=== PATIENT | male | born 1990 | race Caucasian/White ===

== ENCOUNTER 2024-06-20 10:44 | Outpatient (AMB) | payer OTHER, SELFPAY ==
--- NOTE | 2024-06-20 10:54 | MHC.OFFVIS ---
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 States his finger has been locking for more than 1 year now and is very painful. He was previously seen with [facility] and received 2 injection that did not last more than 1-2 months. States he is also numbness and tingling in his fingers. Patient would like to discuss surgical intervention. 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 States his finger has been locking for more than 1 year now and is very painful. He was previously seen with [facility] and received 2 injection that did not last more than 1-2 months. States he is also numbness and tingling in his fingers. Patient would like to discuss surgical intervention. [facility] Surgical History (Updated 06/20/24 @ 10:57 by DEMETRIUS Keane) H/O vasectomy History of ear surgery Social History (Updated 06/20/24 @ 10:57 by DEMETRIUS Keane) Current occupation: [employer]/ [employer]/ hand Physical Exam Vital Signs: BMI result Body Mass Index 31.6 Extrem Other: Patient is alert, oriented, and in no acute distress. Neuro: Normal sensation of the tips of all digits of the left hand at this time Vascular: Cap refill brisk Pain: Tenderness to palpation of the A1 vicki of the left middle finger Pain associated with locking and catching of the left middle finger ROM: There is visible and palpable locking and catching of the left middle finger in a flexed position, consistent with trigger finger Patient is able to make a closed fist and extend all other digits of the left hand fully and without difficulty Skin: No lacerations or abrasions. General: No ecchymosis, erythema, or evidence of infection. Psych: Appears grossly normal Affect normal Attitude cooperative Assessment & Plan Assessment & Plan (1) Trigger finger, left middle finger: Code(s): M65.332 - Trigger finger, left middle finger Category: Medical Plan 1. Trigger finger, left middle finger I educated the patient about the condition. I discussed both operative and nonoperative treatment options. The patient would like to proceed with surgery. The risks and benefits of operative treatment were discussed with the patient and the patient wishes to proceed with surgery. These risks include, but are not limited to, risk of damage to blood vessels, nerves, tendons, infection, recurrence, incomplete relief of preoperative symptoms, persistent pain, possible need for further surgery, and the risks associated with regional blocks and/or anesthesia. Plan is to take the patient to the operating room at some point in the next few weeks for the following procedures: 1. Left middle finger trigger release under local All of the preoperative paperwork including the consent was discussed today. All of the patient's questions were answered in the clinic today. The patient understands that they will be in contact with our surgical specialist to discuss scheduling their procedure. Patient denies diabetes, blood thinners, asthma, heart issues, lung issues, kidney issues, or current smoking. Coding Level of Care Code New Pt Level 4 (72480) Diagnoses Trigger finger, left middle finger M65.332
[2024-06-20 10:55] VITALS: BMI 31.6
== END 2024-06-20 11:16 | disposition home or self-care (01) ==
LOC: HO.HOS 10:45
DX: M65.332 Trigger finger, left middle finger (principal); Z04.2 Encounter for examination and observation following work accident
CPT/HCPCS: 99204

== ENCOUNTER → 2024-06-20 10:44 | Outpatient (BNVA) | payer OTHER, SELFPAY | DX: M65.332 Trigger finger, left middle finger (principal) | CPT/HCPCS: 99202 ==

== ENCOUNTER 2024-07-26 10:06 | Day surgery (SDC) | payer OTHER, SELFPAY ==
--- OUTSIDE RECORDS SUMMARY | 2024-07-26 09:01 | XMS_ITS | Clinical Summary ---
Author Organization Patient Business [facility] Address [address] [place] [address] Care Team Providers Care Shader And Toner Name Role Phone Michael Stephens MD Primary Care Provider [phone] Allergies No known active allergies Medications albuterol HFA (PROAIR HFA ; PROVENTIL HFA ; VENTOLIN HFA) 90 mcg/actuation inhaler Inhale 2 puffs by mouth every 4 (four) hours if needed for wheezing or shortness of breath. 1 each Active ascorbic acid (VITAMIN C) 1,000 mg CR tablet Take by mouth. Activ e Active Problems Problem Noted Date Diagnosed Date Migraine without aura and wi thout status migrainosus, not intractable 09/21/2015 Encounters Date Type Department Care Team Description 06/13/2024 Telephone Internal Medicine - [facility] [address] [place] [id number] Michael Stephens MD Chest Pain; psnemonia 05/25/2024 5:02 AM EST - 05/25/2024 9:16 AM EST Emergency [facility] Emergency [address] [place] [address] Pneumonia of right middle lobe due to infectious organism (Primary Dx) Discharge Disposition: Home or Self Care from Last 3 Months Immunizations Name Administration Dates Next Due Influenza Quadravalent, MDCK , 0.5ml, preservative free (Flucelvax) 6mo and older 01/20/2020,04/13/2019 Tdap Tetanus diptheria acell ular pertussis (Boostrix; Adacel) 7yo and older 07/26/2014 Surgical History Surgery Date Site/Laterality Comments APPENDECTOMY PROCEDURE: LA APPENDEC INDICATED PURPOSE OTH MAJOR PX NOT SPX OTHER SURGICAL HISTORY PROCEDURE: HISTORICAL EAR SURGERY Medical History Medical History Date Comments Migraine without aura and wi thout status migrainosus, not intractable 09/21/2015 DX:Migraine withou t aura and without status migrainosus, not intractable Family History Medical History Relation Name Comments Other: ca Liver and ca uterus Mother's side second cousin Relation Name Status Comments Brother 1 Alive Brother 2 Alive Brother 3 Alive Daughter Alive Father Alive Mother Alive Mother's side Sister Alive Son Alive Social History Tobacco Use Types Packs/Day Years Used Date Smoking Tobacco: Never Smokeless Tobacco: Never Alcohol Use Standard Drinks/Week Comments Yes 0 (1 standard drink = 0.6 oz pur e alcohol) Sex and Gender Information Value Date Recorded Sex Assigned at Male 05/24/2024 8:18 PM EST Legal Sex Male 6:44 PM EST Gender Identity Male 05/24/2024 8:18 PM EST Sexual Orientation Straight 05/24/2024 8: 18 PM EST Obstetrics History Last Filed Vital Signs Vital Sign Reading Time Taken Comments Blood Pressure 109/84 05/25/2024 5:10 AM EST Pulse 64 05/25/2024 5:10 AM EST Temperature 36.8 ??C (98.3 ??F) 05/25/2024 8:53 AM ES T Respiratory Rate 19 05/25/2024 8:53 AM EST Oxygen Saturation 99% 05/25/2024 5:10 AM EST Inhaled Oxygen Concentration - - Weight 86.2 kg (190 lb) 05/24/2024 6:38 PM EST Height 165.1 cm (5' 5 ) 05/24/2024 6:38 PM EST Body Mass Index 31.62 05/24/2024 6:38 PM EST Plan of Treatment Upcoming Encounters Date Type Department Care Team (Late st Contact Info) Description 09/22/2024 2:30 PM EDT Office Visit Internal Medicine - [facility] [address] [place], [place] [phone] Kimberly Manzo MD [address] [place], [place] Health Maintenance Due Date Last Done Comments Hepatitis B Vaccines (1 of 3 - 19+ 3-dose series) 11/17/2007 COVID-19 Vaccine (2023-2 5 season) 2023 Depression Screening 05/25/2024 HIV Screening 05/25/2024 Hepatitis C Screening 05/25/2024 Social Influencers of Health Screening 05/25/2024 DTaP,Tdap,and Td Vaccines (2 - Td or Tdap) 07/26/2024 07/26/2014 Influenza Vaccine (Season Ended) 2024 01/20/2020, 04/13/2019 Cholesterol Screening (Lipid Panel) 05/04/2025 05/04/2020 HIB Vaccines Aged Out No longer eligi ble based on patient's age to complete this topic HPV Vaccines Aged Out No longer eligi ble based on patient's age to complete this topic Hepatitis A Vaccines Aged Out No long er eligible based on patient's age to complete this topic IPV Vaccines Aged Out No longer eligi ble based on patient's age to complete this topic MMR Vaccines Aged Out No longer eligi ble based on patient's age to complete this topic Meningococcal ACWY Vaccine Aged Out N o longer eligible based on patient's age to complete this topic Meningococcal B Vaccine Aged Out No l onger eligible based on patient's age to complete this topic Pneumococcal Vaccine: Pediatrics (0 to 5 Years) and At-Risk Patients (6 to 64 Years) Aged Out No longer eligible b ased on patient's age to complete this topic RSV Immunization Patients Under 20 months Aged Out No longer eligible b ased on patient's age to complete this topic Varicella Vaccines Aged Out No longer eligible based on patient's age to complete this topic Procedures Procedure Name Priority Date/Time Associated Diagnosis Comments ECG ANNOTATED 05/27/2024 RESPIRATORY VIRUS PANEL MOLECULAR STUDY STAT 05/25/2024 8:[address] CHEST WO CONTRAST STAT 05/25/2024 8:04 AM EST D-DIMER STAT 05/25/2024 6:17 AM EST [id number], RSV, FLU A AND B QUALITATIVE RT-PCR, INTERNAL LAB STAT 05/25/2024 6:17 AM EST XR CHEST 2 VIEWS STAT 05/24/2024 8:24 PM EST TROPONIN I HIGH SENSITIVITY STAT 05/24/2024 8:17 PM EST CBC WITH AUTO DIFFERENTIAL STAT 05/24/2024 6:50 PM EST B-TYPE NATRIURETIC PEPTIDE STAT 05/24/2024 6:50 PM EST MAGNESIUM STAT 05/24/2024 6:50 PM EST LIPASE STAT 05/24/2024 6:50 PM EST COMPREHENSIVE METABOLIC PANEL STAT 05/24/2024 6:50 PM EST CBC AND DIFFERENTIAL STAT 05/24/2024 6:50 PM EST TROPONIN I HIGH SENSITIVITY STAT 05/24/2024 6:50 PM EST ECG 12-LEAD STAT 05/24/2024 6:46 PM EST LIPID PANEL Routine 05/04/2020 from Last 3 Months or Most Recently Relevant to Health Maintenance Results * ECG-Annotated (05/27/2024) Provider Onbase MD ECG ORDERABLES Final Result * Respiratory virus panel molecular study (05/25/2024 8:08 AM EST) Adenovirus Detection by PCR Not Detected Not Detected LAB MICROBIOLOGY METHOD 05/25/2024 9:10 AM EST [facility] Influenza A PCR Not Detected Not Detected LAB MICROBIOLOGY METHOD 05/25/2024 9:10 AM EST [facility] Influenza B PCR Not Detected Not Detected LAB MICROBIOLOGY METHOD 05/25/2024 9:10 AM EST [facility] Coronavirus 229E Not Detected Not Detected LAB MICROBIOLOGY METHOD 05/25/2024 9:10 AM [facility] Coronavirus HKU1 Not Detected Not Detected LAB MICROBIOLOGY METHOD 05/25/2024 9:10 AM [facility] Coronavirus OC43 Not Detected Not Detected LAB MICROBIOLOGY METHOD 05/25/2024 9:10 AM [facility] Coronavirus NL63 Not Detected Not Detected LAB MICROBIOLOGY METHOD 05/25/2024 9:10 AM [facility] Parainfluenza Virus 1 Not Detected Not Detected LAB MICROBIOLOGY METHOD 05/25/2024 9:10 AM [facility] Parainfluenza Virus 2 Not Detected Not Detected LAB MICROBIOLOGY METHOD 05/25/2024 9:10 AM [facility] Parainfluenza Virus 3 Not Detected Not Detected LAB MICROBIOLOGY METHOD 05/25/2024 9:10 AM [facility] Parainfluenza Virus 4 Not Detected Not Detected LAB MICROBIOLOGY METHOD 05/25/2024 9:10 AM [facility] RSV PCR Not Detected Not Detected LAB MICROBIOLOGY METHOD 05/25/2024 9:10 AM [facility] Human Metapneumovirus A and B Not Detected Not Detected LAB MICROBIOLOGY METHOD 05/25/2024 9:10 AM [facility] Rhinovirus/Entero virus Not Detected Not Detected LAB MICROBIOLOGY METHOD 05/25/2024 9:10 AM [facility] Bordetella pertussis Not Detected Not Detected LAB MICROBIOLOGY METHOD 05/25/2024 9:10 AM [facility] Bordetella parapertussis Not Detected Not Detected LAB MICROBIOLOGY METHOD 05/25/2024 9:10 AM [facility] Mycoplasma pneumo by PCR Not Detected Not Detected LAB MICROBIOLOGY METHOD 05/25/2024 9:10 AM [facility] Chlamydia pneumoniae Not Detected Not Detected LAB MICROBIOLOGY METHOD 05/25/2024 9:10 AM EST [facility] SARS COV-2 Not Detected Not Detected LAB MICROBIOLOGY METHOD 05/25/2024 9:10 AM EST [facility] Swab Both anterior nares / Unknown Non-blood Collection / Unknown 05/25/2024 8:08 AM EST 05/25/2024 8:15 AM EST Narrative [facility] - 05/25/2024 9:10 AM EST Testing was performed using the [employer] Respiratory Pathogen PCR Assay. All results must be correlated with the clinical findings. Results should not be used as the sole basis for diagnosis. False Negative results may occur from the presence of sequence variants in the region targeted by the assay or the presence of inhibitors. Results may be affected by concurrent antiviral/antimicrobial therapy or levels of organisms that are below the limit of detection. Bee JACOB LAB MICROBIOLOGY - GENERAL OR DERABLES Final Result [facility] [address] [place] [address], * CT Chest wo Contrast (05/25/2024 8:04 AM EST) Anatomical Region Laterality Modality Body Computed Tomogra phy 05/25/2024 8:39 AM EST Impressions 05/25/2024 8:41 AM EST Right middle lobe and lingular pneumonia. -------- FINAL REPORT -------- Dictated By: VIRGILIO HENDERSON Dictated Date: 05/25/2024 08:39 ET Assigned Physician: VIRGILIO HENDERSON Reviewed and Electronically Signed By: VIRGILIO HENDERSON Signed Date: 05/25/2024 08:41 ET Workstation ID: [id number] Transcribed By: Self Edit Transcribed Date: 05/25/2024 08:39 ET Narrative 05/25/2024 8:41 AM EST PROCEDURE: Chest CT INDICATION: Cough, respiratory illness TECHNIQUE: Chest CT without contrast. Multi planar reformats were created and interpreted. The examination was performed utilizing dose reduction techniques. ??Total DLP 842 COMPARISON: ??Radiograph 05/24/2024 FINDINGS: LUNGS/PLEURA: Consolidative opacity in the right lower lobe and lingula at the lung bases. ??No pleural effusion or pneumothorax. MEDIASTINUM: Thyroid gland is unremarkable. No mediastinal or hilar lymphadenopathy. Cardiac chambers are normal in size. No pericardial effusion. Esophagus is normal. CHEST WALL: No axillary lymphadenopathy or superficial hematoma. UPPER ABDOMEN:3 mm nonobstructive left renal calculus. BONES: Bones are normal for age Procedure Note Virgilio Henderson MD - 05/25/2024 PROCEDURE: Chest CT INDICATION: Cough, respiratory illness TECHNIQUE: Chest CT without contrast. Multi planar reformats were createdand interpreted. The examination was performed utilizing dose reductiontechniques. Total DLP 842 COMPARISON: Radiograph 05/24/2024 FINDINGS: LUNGS/PLEURA: Consolidative opacity in the right lower lobe and lingula atthe lung bases. No pleural effusion or pneumothorax. MEDIASTINUM: Thyroid gland is unremarkable. No mediastinal or hilarlymphadenopathy. Cardiac chambers are normal in size. No pericardialeffusion. Esophagus is normal. CHEST WALL: No axillary lymphadenopathy or superficial hematoma. UPPER ABDOMEN:3 mm nonobstructive left renal calculus. BONES: Bones are normal for age IMPRESSION: Right middle lobe and lingular pneumonia. -------- FINAL REPORT -------- Dictated By: VIRGILIO HENDERSON Dictated Date: 05/25/2024 08:39 ET Assigned Physician: VIRGILIO HENDERSON Reviewed and Electronically Signed By: VIRGILIO HENDERSON Signed Date: 05/25/2024 08:41 ET Workstation ID: [id number] Transcribed By: Self Edit Transcribed Date: 05/25/2024 08:39 ET us Bee JACOB [facility] [place] PROCEDURES Final Resul t * [id number], RSV, Influenza A and B qualitative RT-PCR (05/25/2024 6:17 AM EST) Influenza A PCR Not Detected Not Detected LAB MICROBIOLOGY METHOD 05/25/2024 7:06 AM EST [facility] Influenza B PCR Not Detected Not Detected LAB MICROBIOLOGY METHOD 05/25/2024 7:06 AM EST [facility] RSV PCR Not Detected Not Detected LAB MICROBIOLOGY METHOD 05/25/2024 7:06 AM EST [facility] SARS COV-2 Not Detected Not Detected LAB MICROBIOLOGY METHOD 05/25/2024 7:06 AM [facility] Swab Both anterior nares / Unknown Non-blood Collection / Unknown 05/25/2024 6:17 AM EST 05/25/2024 6:26 AM EST Narrative [facility] - 05/25/2024 7:06 AM EST Disclaimer: ??Testing was performed using the [employer] GeneXpert Xpress SARS-CoV-2 _Flu_RSV PLUS PCR assay. ??The manner in which this information is used to guide patient care is the responsibility of the healthcare provider. ??Results should be correlated with the clinical history, epidemiological data, and other data available to the clinician evaluating the patient. ??Negative results do not preclude infection. ??This test has been authorized by the FDA under an Emergency Use Authorization (EUA). ??This test is only authorized for the duration of time the declaration that circumstances exist justifying the authorization of the emergency use of in vitro diagnostic tests for detection of SARS-CoV-2 virus and/or diagnosis of COVID-19 infection under section 564 (b) (1) of the Act, 21 U.S.C 360bbb-3 (b) (1), unless the authorization is terminated or revoked sooner. ?? Reference Range: Not Detected Fact sheet for Healthcare providers can be found at https://www.fda.gov/media/956217/download. ?? Fact sheet for Healthcare patients can be found at https://www.fda.gov/media/500676/download. Bee JACOB LAB MICROBIOLOGY - GENERAL OR DERABLES Final Result [facility] [address] [place] [address], * D-dimer, quantitative (05/25/2024 6:17 AM EST) D-Dimer, Quant (D-DU) <150 <=230 ng/mL DDU LAB COAGULATION METHOD 05/25/2024 7:04 AM EST [facility] Blood Venous blood specimen / Unknown Venipuncture / Unknown 05/25/2024 6:17 AM EST 05/25/2024 6:27 AM EST Narrative [facility] - 05/25/2024 7:04 AM EST D-Dimer <230 ng/mL (D-Dimer units) is the threshold for exclusion of DVT/PE. D-Dimer may be elevated in: Critically ill, severely infected, trauma patients, DIC, acute CVA, acute OK, unstable angina, AF, old age, , and smoking. D-Dimer may be decreased with: Initiation of heparin therapy and oral anticoagulants. us Bee JACOB LAB BLOOD ORDERABLES Final Re sult [facility] [address] [place] [address], [place] [phone] * XR Chest 2 Views (05/24/2024 8:24 PM EST) Anatomical Region Laterality Modality Body Radiographic Estella ging 05/25/2024 8:57 AM EST Impressions 05/25/2024 8:57 AM EST No acute findings. -------- FINAL REPORT -------- Dictated By: Jose Nunez Dictated Date: 05/25/2024 08:57 ET Assigned Physician: Jose Nunez Reviewed and Electronically Signed By: Jose Nunez Signed Date: 05/25/2024 08:57 ET Workstation ID: [id number] Transcribed By: Self Edit Transcribed Date: 05/25/2024 08:57 ET Narrative 05/25/2024 8:57 AM EST PROCEDURE: PA and lateral radiographs of the chest. HISTORY: chest pain. COMPARISON: None. FINDINGS: Mildly elevated right hemidiaphragm. ??Lungs, pleural spaces, and pulmonary vasculature are normal. ??Cardiomediastinal contours are normal. ??Slight S- shaped curvature of the thoracolumbar spine. Procedure Note Jose Nunez MD - 05/25/2024 PROCEDURE: PA and lateral radiographs of the chest. HISTORY: chest pain. COMPARISON: None. FINDINGS: Mildly elevated right hemidiaphragm. Lungs, pleural spaces, and pulmonaryvasculature are normal. Cardiomediastinal contours are normal. SlightS-shaped curvature of the thoracolumbar spine. IMPRESSION: No acute findings. -------- FINAL REPORT -------- Dictated By: Jose Nunez Dictated Date: 05/25/2024 08:57 ET Assigned Physician: Jose Nunez Reviewed and Electronically Signed By: Jose Nunez Signed Date: 05/25/2024 08:57 ET Workstation ID: [id number] Transcribed By: Self Edit Transcribed Date: 05/25/2024 08:57 ET us Marla Conde DO IMG XR PROCEDURES Final R esult * Troponin I high sensitivity (05/24/2024 8:17 PM EST) Only the most recent of2 resultswithin the time period is included. High Sensitivity Troponin I 6 <=79 ng/L LAB CHEMISTRY METHOD 05/24/2024 9:19 PM EST [facility] Blood Venous blood specimen / Unknown Venipuncture / Unknown 05/24/2024 8:17 PM EST 05/24/2024 8:45 PM EST Narrative [facility] - 05/24/2024 9:19 PM EST High levels of biotin in samples may falsely decrease hsTroponin values. ??Use caution when interpreting hsTroponin results in patients taking biotin who exhibit renal impairment (eGFR <60) or in patients taking more than 20 mg/day of biotin. Marla Conde DO LAB BLOOD ORDERABLES Shayla l Result [facility] [address] [place] [address], * (ABNORMAL) CBC auto differential (05/24/2024 6:50 PM EST) WBC 7.8 4.8 - 10.8 K/mcL LAB HEMETOLOGY METHOD 05/24/2024 7:12 PM EST [facility] RBC 5.00 4.50 - 5.50 M/mcL LAB HEMETOLOGY METHOD 05/24/2024 7:12 PM EST [facility] Hemoglobin 13.6 13.5 - 17.5 g/dL LAB HEMETOLOGY METHOD 05/24/2024 7:12 PM [facility] Hematocrit 41.7(L) 42.0 - 54.0 % LAB HEMETOLOGY METHOD 05/24/2024 7:12 PM EST [facility] MCV 83.9 79.0 - 98.0 FL LAB HEMETOLOGY METHOD 05/24/2024 7:12 PM EST [facility] MCH 27.4 27.0 - 32.0 pcg LAB HEMETOLOGY METHOD 05/24/2024 7:12 PM [facility] MCHC 32.6 32.0 - 37.0 g/dL LAB HEMETOLOGY METHOD 05/24/2024 7:12 PM EST [facility] RDW 13.0 11.0 - 15.0 % LAB HEMETOLOGY METHOD 05/24/2024 7:12 PM [facility] Platelets 326 130 - 400 K/mcL LAB HEMETOLOGY METHOD 05/24/2024 7:12 PM [facility] MPV 9.1 7.0 - 11.0 FL LAB HEMETOLOGY METHOD 05/24/2024 7:12 PM [facility] NRBC 0.0 <1.0 % LAB HEMETOLOGY METHOD 05/24/2024 7:12 PM [facility] NRBC Absolute 0.00 <0.10 K/mcL LAB HEMETOLOGY METHOD 05/24/2024 7:12 PM [facility] Neutrophils Relative 47.7 % LAB HEMETOLOGY METHOD 05/24/2024 7:12 PM [facility] Lymphocytes Relative 41.6 % LAB HEMETOLOGY METHOD 05/24/2024 7:12 PM [facility] Monocytes Relative 7.3 % LAB HEMETOLOGY METHOD 05/24/2024 7:12 PM [facility] Eosinophils Relative 2.6 % LAB HEMETOLOGY METHOD 05/24/2024 7:12 PM [facility] Basophils Relative 0.5 % LAB HEMETOLOGY METHOD 05/24/2024 7:12 PM [facility] Immature Granulocytes Relative 0.3 % LAB HEMETOLOGY METHOD 05/24/2024 7:12 PM [facility] Neutrophils Absolute 3.71 1.50 - 7.00 K/mcL LAB HEMETOLOGY METHOD 05/24/2024 7:12 PM [facility] Lymphocytes Absolute 3.23 1.00 - 5.00 K/mcL LAB HEMETOLOGY METHOD 05/24/2024 7:12 PM [facility] Monocytes Absolute 0.57 0.20 - 1.00 K/mcL LAB HEMETOLOGY METHOD 05/24/2024 7:12 PM [facility] Eosinophils Absolute 0.20 0.00 - 0.50 K/mcL LAB HEMETOLOGY METHOD 05/24/2024 7:12 PM [facility] Basophils Absolute 0.04 0.00 - 0.20 K/mcL LAB HEMETOLOGY METHOD 05/24/2024 7:12 PM [facility] Immature Granulocytes Absolute 0.02 0.00 - 0.03 K/[facility] LAB HEMETOLOGY METHOD 05/24/2024 7:12 PM EST [facility] Blood Venous blood specimen / Unknown Venipuncture / Unknown 05/24/2024 6:50 PM EST 05/24/2024 7:06 PM EST us Marla Conde LAB BLOOD ORDERABLES Shayla l Result [facility] [address] [place] [address], [place] [phone] * B-type natriuretic peptide (05/24/2024 6:50 PM EST) [facility] BNP 2 <=100 pcg/mL LAB CHEMISTRY METHOD 05/24/2024 7:37 PM EST [facility] Blood Venous blood specimen / Unknown Venipuncture / Unknown 05/24/2024 6:50 PM EST 05/24/2024 7:06 PM EST Marla Conde LAB BLOOD ORDERABLES Shayla l Result Performing Organization Address [facility]/ZIP Co de Phone Number [facility] [address] [place] [address], [place] [phone] * Magnesium (05/24/2024 6:50 PM EST) [facility] Magnesium 2.2 1.9 - 2.6 mg/dL LAB CHEMISTRY METHOD 05/24/2024 7:33 PM EST [facility] Blood Venous blood specimen / Unknown Venipuncture / Unknown 05/24/2024 6:50 PM EST 05/24/2024 7:05 PM EST Marla Conde LAB BLOOD ORDERABLES Shayla l Result [facility] [address] [place] [address], [place] [phone] * Lipase (05/24/2024 6:50 PM EST) Pathologist [facility] Lipase 45 13 - 75 unit/L LAB CHEMISTRY METHOD 05/24/2024 7:33 PM EST [facility] Blood Venous blood specimen / Unknown Venipuncture / Unknown 05/24/2024 6:50 PM EST 05/24/2024 7:05 PM EST us Marla Conde DO LAB BLOOD ORDERABLES Shayla l Result [facility] [address] [place] [address], [place] [phone] * (ABNORMAL) Comprehensive metabolic panel (05/24/2024 6:50 PM EST) Pathologist [facility] Sodium 139 133 - 145 mmol/L LAB CHEMISTRY METHOD 05/24/2024 7:35 PM [facility] Potassium 3.7 3.5 - 5.5 mmol/L LAB CHEMISTRY METHOD 05/24/2024 7:35 PM [facility] Chloride 107 96 - 110 mmol/L LAB CHEMISTRY METHOD 05/24/2024 7:35 PM [facility] CO2 27 21 - 32 mmol/L LAB CHEMISTRY METHOD 05/24/2024 7:35 PM [facility] Anion Gap 5 3 - 11 LAB CHEMISTRY METHOD 05/24/2024 7:35 PM [facility] Glucose 89 70 - 100 mg/dL LAB CHEMISTRY METHOD 05/24/2024 7:35 PM [facility] BUN 16 5 - 25 mg/dL LAB CHEMISTRY METHOD 05/24/2024 7:35 PM [facility] Creatinine 0.82 0.70 - 1.30 mg/dL LAB CHEMISTRY METHOD 05/24/2024 7:35 PM EST [facility] eGFR 117 >=60 mL/min/1. 73m2 LAB CHEMISTRY METHOD 05/24/2024 7:35 PM [facility] Comment:Calculation based on the??Chronic Kidney Disease Epidemiology Collaboration (CKD-EPI) equation refit??without adjustment for race. BUN/Creatinine Ratio 19.5 LAB CHEMISTRY METHOD 05/24/2024 7:35 PM [facility] Calcium 9.4 8.5 - 10.5 mg/dL LAB CHEMISTRY METHOD 05/24/2024 7:35 PM [facility] AST (SGOT) 21 10 - 42 unit/L LAB CHEMISTRY METHOD 05/24/2024 7:35 PM [facility] ALT (SGPT) 48 10 - 60 unit/L LAB CHEMISTRY METHOD 05/24/2024 7:35 PM [facility] Alkaline Phosphatase 129(H) 42 - 121 unit/L LAB CHEMISTRY METHOD 05/24/2024 7:35 PM [facility] Total Protein 7.6 6.0 - 8.0 g/dL LAB CHEMISTRY METHOD 05/24/2024 7:35 PM [facility] Albumin 3.9 3.2 - 5.0 g/dL LAB CHEMISTRY METHOD 05/24/2024 7:35 PM [facility] Total Bilirubin 0.9 0.0 - 1.4 mg/dL LAB CHEMISTRY METHOD 05/24/2024 7:35 PM [facility] Blood Venous blood specimen / Unknown Venipuncture / Unknown 05/24/2024 6:50 PM EST 05/24/2024 7:05 PM EST us Marla Conde DO LAB BLOOD ORDERABLES Shayla l Result [facility] [address] [place] [address], [place] [phone] * ECG 12 lead (05/24/2024 6:46 PM EST) Ventricular Rate ECG 71 BPM GEMUSE Atrial Rate 71 BPM GEMUSE P-R Interval 136 ms GEMUSE QRS Duration 88 ms GEMUSE Q-T Interval 394 ms GEMUSE QTc 428 ms GEMUSE P Wave [place] 46 degrees GEMUSE R [place] 34 degrees GEMUSE T [place] 6 degrees GEMUSE ECG Interpretation Normal sinus rhythm No previous ECGs available Confirmed by JESSICA ARITA ([id number]) on 05/25/2024 8:02:00 PM GEMUSE 05/24/2024 6:46 PM EST 05/25/2024 8:02 PM EST Marla Sarmientony Elton DO ECG ORDERABLES Final Res ult GEMUSE * Lipid panel (05/04/2020) LDL/HDL Ratio 5 Triglycerides 58 mg/dL Cholesterol 219 mg/dL HDL 42 mg/dL LDL Cholesterol 166 mg/dL Blood Venous blood specimen / Unknown Historical Provider LAB BLOOD ORDERABLES Shayla l Result from Last 3 Months or Most Recently Relevant to Health Maintenance Insurance MEDICAID - [place] Care Teams Shader And Toner Relationship Specialty Start Date End Date Michael Stephens MD [address] [place] [id number] PCP - General Internal Medicine 07/14/14
[2024-07-26 10:56] VITALS: BP 116/75; PULSE 65; RESP 18; TEMP 36.7; O2SAT 97; BMI 31.7
--- NOTE | 2024-07-26 11:08 | P.OP_ITS ---
Operative Note Operative Note Date of Service: 07/26/24 Narrative: Operative Note Preop diagnosis: 1. Left middle finger Trigger finger Postop diagnosis: Same Procedure: 1. Left middle finger A1 vicki release Surgeon: Ana Laura Green MD Senior Outside Sales Representative: And/or Kym JACOB Anesthesia: local block using 1% lidocaine with epinephrine Findings: No locking or catching after A1 vicki release EBL: Less than 5 mL Tourniquet time: None Specimens: None Complications: None Disposition: Brought to recovery room in stable condition Plan: Follow-up for 10-14 days for wound check and suture removal Indications: The patient is 33 years old, with a left middle finger trigger finger that has been unresponsive to nonoperative management. The risks and benefits of operative treatment including but not limited to risk of damage to blood vessels, nerves, tendons, infection, persistent pain, persistent symptoms, recurrence or possible need for additional surgery were discussed with the patient and the patient wishes to proceed with surgery. Procedure: Once consent was obtained a local block was performed in the preop area using a combination of 1% lidocaine with epinephrine. The patient was then brought back to the operating suite and placed on the operative table in supine position. The left upper extremity was prepped and draped in a standard surgical fashion. Once assured that we had a good block, a 1.5 cm oblique incision was made centered over the A1 vicki of the left middle finger . The incision was made through the skin to the subcutaneous tissues using a #15 blade. Careful dissection was made down to the level of the A1 vicki using tenotomy scissors, with care being taken to protect the nearby neurovascular structures. A longitudinal incision was made in the A1 vicki 1st using a #15 blade, then using tenotomy scissors under direct visualization. The A1 vicki was noted to be thickened. Following our A1 vicki release, we no longer saw any locking or catching of the digit with flexion and extension. Once satisfied with our A1 vicki release the wound was copiously irrigated with normal saline and hemostasis was obtained with a brief period of local pressure. The skin edges were reapproximated with some 5.0 nylon suture material and a sterile dressing was applied. The patient appears to have tolerated the procedure well and with no complications. All digits were well vascularized at the conclusion of the case.
--- NOTE | 2024-07-26 11:08 | MHC.SHP ---
Pre-Procedural Eval Section A - 24 Hr Update-Section A only Date of Service: 07/26/24 The patient is an INPATIENT: No Changes since office visit: No Cold of Flu in the past 2 weeks, No New Medical Problems, No Changes in Medication and No Patient answered all questions The patient has been examined within 24 hours of the surgical procedure. The History & Physical has been completed within 30 days and I have reviewed it.: Yes Section B - Complete if H&P > 30 days Chief Complaint: Trigger finger, left middle finger Allergies: Allergies Allergy/AdvReac Type Severity Reaction Status Date / Time No Known Allergies Allergy Verified 06/20/24 10:55 Plan Diagnosis/Plan: Unchanged I have reviewed the history and physical and performed a pertinent physical examination on my patient. No changes have occurred unless specified. Time Spent With Patient Time: Total time managing care of this patient today ____ minutes.
[2024-07-26 12:29] VITALS: BP 124/71; PULSE 71; RESP 18; O2SAT 100
== END 2024-07-26 12:31 | disposition home or self-care (01) ==
PROVIDERS: PCP Internal Medicine; Visit Provider Orthopaedic Surgery
PROC: (CPT 26055; principal; 2024-07-26 13:20)
DX: M65.332 Trigger finger, left middle finger (principal); R20.0 Anesthesia of skin; R20.2 Paresthesia of skin; Z98.52 Vasectomy status; Z98.890 Other specified postprocedural states
CPT/HCPCS: 26055

== ENCOUNTER → 2024-07-26 10:06 | Outpatient (BNV) | payer OTHER, SELFPAY | PROVIDERS: PCP Internal Medicine; Visit Provider Orthopaedic Surgery | DX: M65.332 Trigger finger, left middle finger (principal) | CPT/HCPCS: 26055 ==

== ENCOUNTER 2024-08-09 10:14 | Outpatient (AMB) | payer OTHER, SELFPAY ==
--- NOTE | 2024-08-09 10:17 | MHC.OFFVIS ---
Intake Visit Reasons: PO LT MF trigger 07/26/24 AR Intake Note: Adonay is a 33 year old right hand dominant male who presents today for his first post operative appointment s/p Left Middle Finger Trigger Release 07/26/24 AR. Patient reports that he is dong well he is having some limited ROM as he is unable to fully straighten his finger. Sutures removed and steris applied Allergies No Known Allergies Allergy (Verified 06/20/24 10:55) HPI HPI PO LT MF trigger 07/26/24 AR: Details: Adonay is a 33 year old right hand dominant male who presents today for his first post operative appointment s/p Left Middle Finger Trigger Release 07/26/24 AR. Patient reports that he is dong well he is having some limited ROM as he is unable to fully straighten his finger. 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 Neuro: Normal sensation of the tips of all digits of the left hand at this time Vascular: Cap refill brisk Pain: No tenderness to palpation of the incision site over A1 vicki of the left middle finger ROM: Patient was able to make a closed fist and extend all digits of the left hand fully No further locking and catching of the middle finger Skin: No lacerations or abrasions. General: No ecchymosis, erythema, or evidence of infection. Psych: Appears grossly normal Affect normal Attitude cooperative Assessment & Plan Assessment & Plan (1) Trigger finger, left middle finger: Code(s): M65.332 - Trigger finger, left middle finger Category: Medical Plan 1. Status post left middle finger trigger release DOS 07/26/2024 Patient appears to be recovering well postoperatively Patient is educated about the typical recovery course At this time, patient was informed he will require no further acute follow-up with us, as he appears to be recovering very well Patient was amenable to this plan Follow-up as needed Coding Level of Care Code Global (68704) Diagnoses Trigger finger, left middle finger M65.332
--- OUTSIDE RECORDS SUMMARY | 2024-08-09 11:42 | XMS_ITS | Clinical Summary ---
Author Organization Patient Business [facility] Address [address] [place] [address] Care Team Providers Care Data Communications Analyst Name Role Phone Michael Stephens MD Primary Care Provider Allergies No known active allergies Medications albuterol [...] Telephone Internal Medicine - [facility] [address] [place] [id number] Michael Stephens MD Chest Pain; psnemonia 05/25/2024 5:02 AM EST - 05/25/2024 9:16 AM EST Emergency [facility] Emergency [address] [place] [address] Pneumonia of right middle lobe due to infectious organism (Primary Dx) Discharge Disposition: Home or Self Care from Last 3 Months Immunizations Name Administration Dates Next Due Influenza Quadravalent, MDCK , 0.5ml, preservative free (Flucelvax) 6mo and older 01/20/2020,04/13/2019 Tdap Tetanus diptheria acell ular pertussis (Boostrix; Adacel) 7yo and older 07/26/2014 Surgical History Surgery Date Site/Laterality Comments APPENDECTOMY PROCEDURE: CA APPENDEC INDICATED PURPOSE OTH MAJOR PX NOT [...] PM EDT Office Visit Internal Medicine - [facility] [address], [place] [phone] Kimberly Manzo MD [address], [place] Health Maintenance Due Date Last Done [...] EST D-DIMER STAT 05/25/2024 6:17 AM EST [id number], RSV, FLU A AND B QUALITATIVE RT-PCR, [...] LAB MICROBIOLOGY METHOD 05/25/2024 9:10 AM EST [facility] Influenza A PCR Not Detected Not Detected LAB MICROBIOLOGY METHOD 05/25/2024 9:10 AM EST [facility] Influenza B PCR Not Detected Not Detected LAB MICROBIOLOGY METHOD 05/25/2024 9:10 AM EST [facility] Coronavirus 229E Not Detected Not Detected LAB MICROBIOLOGY METHOD 05/25/2024 9:[address] [facility] Coronavirus HKU1 Not Detected Not Detected LAB MICROBIOLOGY METHOD 05/25/2024 9:[address] [facility] Coronavirus OC43 Not Detected Not Detected LAB MICROBIOLOGY METHOD 05/25/2024 9:[address] [facility] Coronavirus NL63 Not Detected Not Detected LAB MICROBIOLOGY METHOD 05/25/2024 9:[address] [facility] Parainfluenza Virus 1 Not Detected Not Detected LAB MICROBIOLOGY METHOD 05/25/2024 9:[address] [facility] Parainfluenza Virus 2 Not Detected Not Detected LAB MICROBIOLOGY METHOD 05/25/2024 9:[address] [facility] Parainfluenza Virus 3 Not Detected Not Detected LAB MICROBIOLOGY METHOD 05/25/2024 9:[address] [facility] Parainfluenza Virus 4 Not Detected Not Detected LAB MICROBIOLOGY METHOD 05/25/2024 9:[address] [facility] RSV PCR Not Detected Not Detected LAB MICROBIOLOGY METHOD 05/25/2024 9:[address] [facility] Human Metapneumovirus A and B Not Detected Not Detected LAB MICROBIOLOGY METHOD 05/25/2024 9:[address] [facility] Rhinovirus/Entero virus Not Detected Not Detected LAB MICROBIOLOGY METHOD 05/25/2024 9:[address] [facility] Bordetella pertussis Not Detected Not Detected LAB MICROBIOLOGY METHOD 05/25/2024 9:[address] [facility] Bordetella parapertussis Not Detected Not Detected LAB MICROBIOLOGY METHOD 05/25/2024 9:[address] [facility] Mycoplasma pneumo by PCR Not Detected Not Detected LAB MICROBIOLOGY METHOD 05/25/2024 9:[address] [facility] Chlamydia pneumoniae Not Detected Not Detected LAB MICROBIOLOGY METHOD 05/25/2024 9:10 AM EST [facility] SARS COV-2 Not Detected Not Detected LAB MICROBIOLOGY METHOD 05/25/2024 9:10 AM EST [facility] Swab Both anterior nares / Unknown Non-blood Collection / Unknown 05/25/2024 8:08 AM EST 05/25/2024 8:15 AM EST Narrative [facility] - 05/25/2024 9:10 AM EST Testing was performed using the [employer] Respiratory Pathogen PCR Assay. All results must [...] MICROBIOLOGY - GENERAL OR DERABLES Final Result [facility] [address] [place] [address], * CT Chest wo Contrast (05/25/2024 8:04 AM EST) Anatomical Region Laterality Modality Body Computed Tomogra phy 05/25/2024 8:39 AM EST Impressions 05/25/2024 8:41 AM EST Right middle lobe and lingular pneumonia. -------- FINAL REPORT -------- Dictated By: VIRGILIO HENDERSON Dictated Date: 05/25/2024 08:39 ET Assigned Physician: VIRGILIO HENDERSON Reviewed and Electronically Signed By: VIRGILIO HENDERSON Signed Date: 05/25/2024 08:41 ET Workstation ID: [id number] Transcribed By: Self Edit Transcribed Date: 05/25/2024 [...] Signed Date: 05/25/2024 08:41 ET Workstation ID: [id number] Transcribed By: Self Edit Transcribed Date: 05/25/2024 08:39 ET us Bee JACOB [facility] [place] PROCEDURES Final Resul t * [id number], RSV, Influenza A and B qualitative RT-PCR (05/25/2024 6:17 AM EST) Influenza A PCR Not Detected Not Detected LAB MICROBIOLOGY METHOD 05/25/2024 7:06 AM EST [facility] Influenza B PCR Not Detected Not Detected LAB MICROBIOLOGY METHOD 05/25/2024 7:06 AM EST [facility] RSV PCR Not Detected Not Detected LAB MICROBIOLOGY METHOD 05/25/2024 7:06 AM EST [facility] SARS COV-2 Not Detected Not Detected LAB MICROBIOLOGY METHOD 05/25/2024 7:[address] [facility] Swab Both anterior nares / Unknown Non-blood Collection / Unknown 05/25/2024 6:17 AM EST 05/25/2024 6:26 AM EST Narrative [facility] - 05/25/2024 7:06 AM EST Disclaimer: ??Testing was performed using the [employer] GeneXpert Xpress SARS-CoV-2 _Flu_RSV PLUS PCR assay. [...] for Healthcare providers can be found at https://www.fda.gov/media/832299/download. ?? Fact sheet for Healthcare patients can be found at https://www.fda.gov/media/894681/download. Bee JACOB LAB MICROBIOLOGY - GENERAL OR DERABLES Final Result [facility] [address] [place] [address], * D-dimer, quantitative (05/25/2024 6:17 AM EST) D-Dimer, Quant (D-DU) <150 <=230 ng/mL DDU LAB COAGULATION METHOD 05/25/2024 7:04 AM EST [facility] Blood Venous blood specimen / Unknown Venipuncture / Unknown 05/25/2024 6:17 AM EST 05/25/2024 6:27 AM EST Narrative [facility] - 05/25/2024 7:04 AM EST D-Dimer <230 ng/mL (D-Dimer units) is the threshold for exclusion of DVT/PE. D-Dimer may be elevated in: Critically ill, severely infected, trauma patients, DIC, acute CVA, acute TN, unstable angina, AF, old age, , and smoking. D-Dimer may be decreased with: Initiation of heparin therapy and oral anticoagulants. us Bee JACOB LAB BLOOD ORDERABLES Final Re sult [facility] [address] [place] [address], [place] [phone] * XR Chest 2 Views (05/24/2024 8:24 PM EST) Anatomical Region Laterality Modality Body Radiographic Estella ging 05/25/2024 8:57 AM EST Impressions 05/25/2024 8:57 AM EST No acute findings. -------- FINAL REPORT -------- Dictated By: Jose Nunez Dictated Date: 05/25/2024 08:57 ET Assigned Physician: Jose Nunez Reviewed and Electronically Signed By: Jose Nunez Signed Date: 05/25/2024 08:57 ET Workstation ID: [id number] Transcribed By: Self Edit Transcribed Date: 05/25/2024 [...] Signed Date: 05/25/2024 08:57 ET Workstation ID: [id number] Transcribed By: Self Edit Transcribed Date: 05/25/2024 08:57 ET us Marla Conde DO IMG XR PROCEDURES Final R esult * Troponin I high sensitivity (05/24/2024 8:17 PM EST) Only the most recent of2 resultswithin the time period is included. High Sensitivity Troponin I 6 <=79 ng/L LAB CHEMISTRY METHOD 05/24/2024 9:19 PM EST [facility] Blood Venous blood specimen / Unknown Venipuncture / Unknown 05/24/2024 8:17 PM EST 05/24/2024 8:45 PM EST Narrative [facility] - 05/24/2024 9:19 PM EST High levels of biotin in samples may falsely decrease hsTroponin values. ??Use caution when interpreting hsTroponin results in patients taking biotin who exhibit renal impairment (eGFR <60) or in patients taking more than 20 mg/day of biotin. Marla Conde DO LAB BLOOD ORDERABLES Shayla l Result [facility] [address] [place] [address], * (ABNORMAL) CBC auto differential (05/24/2024 6:50 PM EST) WBC 7.8 4.8 - 10.8 K/mcL LAB HEMETOLOGY METHOD 05/24/2024 7:12 PM EST [facility] RBC 5.00 4.50 - 5.50 M/mcL LAB HEMETOLOGY METHOD 05/24/2024 7:12 PM EST [facility] Hemoglobin 13.6 13.5 - 17.5 g/dL LAB HEMETOLOGY METHOD 05/24/2024 7:[address] [facility] Hematocrit 41.7(L) 42.0 - 54.0 % LAB HEMETOLOGY METHOD 05/24/2024 7:12 PM EST [facility] MCV 83.9 79.0 - 98.0 FL LAB HEMETOLOGY METHOD 05/24/2024 7:12 PM EST [facility] MCH 27.4 27.0 - 32.0 pcg LAB HEMETOLOGY METHOD 05/24/2024 7:[address] [facility] MCHC 32.6 32.0 - 37.0 g/dL LAB HEMETOLOGY METHOD 05/24/2024 7:12 PM EST [facility] RDW 13.0 11.0 - 15.0 % LAB HEMETOLOGY METHOD 05/24/2024 7:[address] [facility] Platelets 326 130 - 400 K/mcL LAB HEMETOLOGY METHOD 05/24/2024 7:[address] [facility] MPV 9.1 7.0 - 11.0 FL LAB HEMETOLOGY METHOD 05/24/2024 7:[address] [facility] NRBC 0.0 <1.0 % LAB HEMETOLOGY METHOD 05/24/2024 7:[address] [facility] NRBC Absolute 0.00 <0.10 K/mcL LAB HEMETOLOGY METHOD 05/24/2024 7:[address] [facility] Neutrophils Relative 47.7 % LAB HEMETOLOGY METHOD 05/24/2024 7:[address] [facility] Lymphocytes Relative 41.6 % LAB HEMETOLOGY METHOD 05/24/2024 7:[address] [facility] Monocytes Relative 7.3 % LAB HEMETOLOGY METHOD 05/24/2024 7:[address] [facility] Eosinophils Relative 2.6 % LAB HEMETOLOGY METHOD 05/24/2024 7:[address] [facility] Basophils Relative 0.5 % LAB HEMETOLOGY METHOD 05/24/2024 7:[address] [facility] Immature Granulocytes Relative 0.3 % LAB HEMETOLOGY METHOD 05/24/2024 7:[address] [facility] Neutrophils Absolute 3.71 1.50 - 7.00 K/mcL LAB HEMETOLOGY METHOD 05/24/2024 7:[address] [facility] Lymphocytes Absolute 3.23 1.00 - 5.00 K/mcL LAB HEMETOLOGY METHOD 05/24/2024 7:[address] [facility] Monocytes Absolute 0.57 0.20 - 1.00 K/mcL LAB HEMETOLOGY METHOD 05/24/2024 7:[address] [facility] Eosinophils Absolute 0.20 0.00 - 0.50 K/mcL LAB HEMETOLOGY METHOD 05/24/2024 7:[address] [facility] Basophils Absolute 0.04 0.00 - 0.20 K/mcL LAB HEMETOLOGY METHOD 05/24/2024 7:[address] [facility] Immature Granulocytes Absolute 0.02 0.00 - 0.03 K/[facility] LAB HEMETOLOGY METHOD 05/24/2024 7:12 PM EST [facility] Blood Venous blood specimen / Unknown Venipuncture / Unknown 05/24/2024 6:50 PM EST 05/24/2024 7:06 PM EST us Marla Conde LAB BLOOD ORDERABLES Shayla l Result [facility] [address] [place] [address], [place] [phone] * B-type natriuretic peptide (05/24/2024 6:50 PM EST) [facility] BNP 2 <=100 pcg/mL LAB CHEMISTRY METHOD 05/24/2024 7:37 PM EST [facility] Blood Venous blood specimen / Unknown Venipuncture / Unknown 05/24/2024 6:50 PM EST 05/24/2024 7:06 PM EST Marla Conde LAB BLOOD ORDERABLES Shayla l Result Performing Organization Address [facility]/ZIP Co de Phone Number [facility] [address] [place] [address], [place] [phone] * Magnesium (05/24/2024 6:50 PM EST) [facility] Magnesium 2.2 1.9 - 2.6 mg/dL LAB CHEMISTRY METHOD 05/24/2024 7:33 PM EST [facility] Blood Venous blood specimen / Unknown Venipuncture / Unknown 05/24/2024 6:50 PM EST 05/24/2024 7:05 PM EST Marla Conde LAB BLOOD ORDERABLES Shayla l Result [facility] [address] [place] [address], [place] [phone] * Lipase (05/24/2024 6:50 PM EST) Pathologist [facility] Lipase 45 13 - 75 unit/L LAB CHEMISTRY METHOD 05/24/2024 7:33 PM EST [facility] Blood Venous blood specimen / Unknown Venipuncture / Unknown 05/24/2024 6:50 PM EST 05/24/2024 7:05 PM EST us Marla Conde DO LAB BLOOD ORDERABLES Shayla l Result [facility] [address] [place] [address], [place] [phone] * (ABNORMAL) Comprehensive metabolic panel (05/24/2024 6:50 PM EST) Pathologist [facility] Sodium 139 133 - 145 mmol/L LAB CHEMISTRY METHOD 05/24/2024 7:[address] [facility] Potassium 3.7 3.5 - 5.5 mmol/L LAB CHEMISTRY METHOD 05/24/2024 7:[address] [facility] Chloride 107 96 - 110 mmol/L LAB CHEMISTRY METHOD 05/24/2024 7:[address] [facility] CO2 27 21 - 32 mmol/L LAB CHEMISTRY METHOD 05/24/2024 7:[address] [facility] Anion Gap 5 3 - 11 LAB CHEMISTRY METHOD 05/24/2024 7:[address] [facility] Glucose 89 70 - 100 mg/dL LAB CHEMISTRY METHOD 05/24/2024 7:[address] [facility] BUN 16 5 - 25 mg/dL LAB CHEMISTRY METHOD 05/24/2024 7:[address] [facility] Creatinine 0.82 0.70 - 1.30 mg/dL LAB CHEMISTRY METHOD 05/24/2024 7:35 PM EST [facility] eGFR 117 >=60 mL/min/1. 73m2 LAB CHEMISTRY METHOD 05/24/2024 7:[address] [facility] Comment:Calculation based on the??Chronic Kidney Disease Epidemiology Collaboration (CKD-EPI) equation refit??without adjustment for race. BUN/Creatinine Ratio 19.5 LAB CHEMISTRY METHOD 05/24/2024 7:[address] [facility] Calcium 9.4 8.5 - 10.5 mg/dL LAB CHEMISTRY METHOD 05/24/2024 7:[address] [facility] AST (SGOT) 21 10 - 42 unit/L LAB CHEMISTRY METHOD 05/24/2024 7:[address] [facility] ALT (SGPT) 48 10 - 60 unit/L LAB CHEMISTRY METHOD 05/24/2024 7:[address] [facility] Alkaline Phosphatase 129(H) 42 - 121 unit/L LAB CHEMISTRY METHOD 05/24/2024 7:[address] [facility] Total Protein 7.6 6.0 - 8.0 g/dL LAB CHEMISTRY METHOD 05/24/2024 7:[address] [facility] Albumin 3.9 3.2 - 5.0 g/dL LAB CHEMISTRY METHOD 05/24/2024 7:[address] [facility] Total Bilirubin 0.9 0.0 - 1.4 mg/dL LAB CHEMISTRY METHOD 05/24/2024 7:[address] [facility] Blood Venous blood specimen / Unknown Venipuncture / Unknown 05/24/2024 6:50 PM EST 05/24/2024 7:05 PM EST us Marla Conde DO LAB BLOOD ORDERABLES Shayla l Result [facility] [address] [place] [address], [place] [phone] * ECG 12 lead (05/24/2024 6:46 PM EST) Ventricular Rate ECG 71 BPM GEMUSE Atrial Rate 71 BPM GEMUSE P-R Interval 136 ms GEMUSE QRS Duration 88 ms GEMUSE Q-T Interval 394 ms GEMUSE QTc 428 ms GEMUSE P Wave [place] 46 degrees GEMUSE R [place] 34 degrees GEMUSE T [place] 6 degrees GEMUSE ECG Interpretation Normal sinus [...] Maintenance Insurance MEDICAID - [place] Care Teams Data Communications Analyst Relationship Specialty Start Date End Date Michael Stephens MD [address] [place] [id number] PCP - General Internal Medicine 07/14/14
== END 2024-08-09 10:26 | disposition home or self-care (01) ==
LOC: HO.HOS 10:15
DX: M65.332 Trigger finger, left middle finger (principal)
CPT/HCPCS: 99024

== ENCOUNTER → 2024-08-09 10:14 | Outpatient (BNVA) | payer OTHER, SELFPAY | DX: Z47.89 Encounter for other orthopedic aftercare (principal); Z98.890 Other specified postprocedural states | CPT/HCPCS: 99212 ==

== ENCOUNTER 2024-09-27 09:50 | Outpatient (AMB) | payer OTHER, SELFPAY ==
[2024-09-27 09:53] VITALS: BMI 31.6
--- NOTE | 2024-09-27 09:53 | A.OFFVIS_ITS ---
Vital Signs 09/27/24 09:53 Height 5 ft 5 in Weight 190 lb BMI 31.6 Intake Visit Reasons: PO LT MF trigger 07/26/24 AR Intake Note: Adonay is a 33 year old right hand dominant male who presents today for a post operative visit status post left middle finger A1 vicki release, DOS: 07/26/[address] Ana Laura Green. Patient states his symptoms have returned, complaints of locking and catching, as well as pain and swelling. He states his symptoms returned after returning to work. Allergies No Known Allergies Allergy (Verified 09/27/24 10:00) HPI HPI PO LT MF trigger 07/26/24 AR: Details: Adonay is a 33 year old right hand dominant male who presents today for a post operative visit status post left middle finger A1 vicki release, DOS: 07/26/[address] Ana Laura Green. Patient states his symptoms have returned, complaints of locking and catching, as well as pain and swelling. He states his symptoms returned after returning to work. 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 Neuro: Normal sensation of the tips of all digits of the left hand at this time Vascular: Cap refill brisk Pain: No tenderness to palpation of the A1 vicki of the left middle finger ROM: There is no visible and palpable locking and catching of the left middle finger in a flexed position Patient is able to make a closed fist and extend all other digits of the left hand fully and without difficulty Skin: No lacerations or abrasions. General: No ecchymosis, erythema, or evidence of infection. Psych: Appears grossly normal Affect normal Attitude cooperative Assessment & Plan Assessment & Plan (1) Trigger finger, left middle finger: Code(s): M65.332 - Trigger finger, left middle finger Category: Medical Plan 1. Ongoing locking and catching after left middle finger trigger release Patient is educated about this condition Patient is educated about the typical treatment course At this time, patient is referred to Dr. Green for discussion of repeat surgery for ongoing locking and catching of the left middle finger Patient is amenable to this plan Follow-up with Dr. Green Coding Level of Care Code Global (52601) Diagnoses Trigger finger, left middle finger M65.332
--- OUTSIDE RECORDS SUMMARY | 2024-09-27 10:47 | XMS_ITS | Clinical Summary ---
Author Organization [facility] Business Ser [facility] Address [address] [place] [address] Care Team Providers Care Food Safety Scientist Name Role Phone Michael Stephens MD Primary Care Provider [phone] Allergies No known active allergies Medications albuterol HFA (PROAIR HFA ; PROVENTIL HFA ; VENTOLIN HFA) 90 mcg/actuation inhaler Inhale 2 puffs by mouth every 4 (four) hours if needed for wheezing or shortness of breath. 1 each 5 Active ascorbic acid (VITAMIN C) 1,000 mg CR tablet Take by mouth. Activ e Active Problems Problem Noted Date Diagnosed Date Migraine without aura and wi thout status migrainosus, not intractable 09/21/2015 Immunizations Name Administration Dates Next Due Influenza Quadravalent, MDCK , 0.5ml, preservative free (Flucelvax) 6mo and older 01/20/2020,04/13/2019 Tdap Tetanus diptheria acell ular pertussis (Boostrix; Adacel) 7yo and older 07/26/2014 Surgical History Surgery Date Site/Laterality Comments APPENDECTOMY PROCEDURE: [place] APPENDEC INDICATED PURPOSE OTH MAJOR PX NOT [...] 64 05/25/2024 5:10 AM EST Temperature 36.8 C (98.3 F) 05/25/2024 8:53 AM EST Respiratory Rate 19 05/25/2024 8:53 AM EST Oxygen Saturation 99% 05/25/2024 5:10 AM EST Inhaled Oxygen Concentration - - Weight 86.2 kg (190 lb) 05/24/2024 6:38 PM EST Height 165.1 cm (5' 5 ) 05/24/2024 6:38 PM EST Body Mass Index 31.62 05/24/2024 6:38 PM EST Plan of Treatment Health Maintenance Due Date Last Done Comments [...] Procedure Name Priority Date/Time Associated Diagnosis Comments LIPID PANEL Routine 05/04/2020 from Last 3 Months or Most Recently Relevant to Health Maintenance Results * Lipid panel (05/04/2020) LDL/HDL Ratio 5 Triglycerides 58 mg/dL Cholesterol 219 mg/dL HDL 42 mg/dL LDL Cholesterol 166 mg/dL Blood Venous blood specimen / Unknown Historical Provider LAB BLOOD ORDERABLES Shayla l Result from Last 3 Months or Most Recently Relevant to Health Maintenance Insurance [place] - [place] Care Teams Food Safety Scientist Relationship Specialty Start Date End Date Michael Stephens MD [address] [place] [id number] PCP - General Internal Medicine 4/10/15
== END 2024-09-27 10:19 | disposition home or self-care (01) ==
LOC: HO.HOS 09:51
PROVIDERS: PCP Internal Medicine
DX: M65.332 Trigger finger, left middle finger (principal)
CPT/HCPCS: 99024

== ENCOUNTER → 2024-09-27 09:50 | Outpatient (BNVA) | payer OTHER, SELFPAY | PROVIDERS: PCP Internal Medicine | DX: M65.322 Trigger finger, left index finger (principal) | CPT/HCPCS: 99212 ==

== ENCOUNTER 2024-10-14 14:33 | Outpatient (AMB) | payer OTHER, SELFPAY ==
--- NOTE | 2024-10-14 14:35 | MHC.OFFVIS ---
Intake Visit Reasons: P/O S/P LT MF trig rel/ still has Locking Intake Note: Adonay is a 33 year old right hand dominant male who presents today for a follow up visit for his Left Middle finger s/p left middle finger trigger release 07/26/24. Patient reports that he wakes up in the morning with Left middle finger locking. He is able to unlock it and it does not happen again through the day. he has some mild numbness that is felt while it is locked. 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 He is status post a left middle finger trigger release with sc on 07/26/2024. He says that starting in September he started to have a little bit of swelling around the A1 vicki area and then started waking up in the mornings with a locked middle finger trigger finger again. 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 Cap refill was brisk. He can make a fist and extend all of his digits today. We did not see any locking and catching today. He does have some mild tenderness over the A1 vicki, more at the proximal end of the A1 vicki. He was not particularly tender over the A2 vicki, though I did feel a bump in the tendon passed beneath the A2 vicki as well. His surgical incision is well healed with no evidence of infection Assessment & Plan Assessment & Plan (1) Trigger finger, left middle finger: Code(s): M65.332 - Trigger finger, left middle finger Category: Medical Plan Assessment and plan: 1. Recurrence of left middle finger trigger finger, status post release Date of surgery was 07/26/2024 Initially with good results, but in September started having recurrence of locking and catching Some tenderness in the A1 vicki area I educated the patient about this condition We discussed operative and non operative treatment options and I am recommending surgery. The risks and benefits of operative treatment were discussed with the patient and the patient wishes to proceed with surgery. These risks include, but are not limited to risk of damage to blood vessels, nerves, tendons, infection, recurrence, incomplete relief of preoperative symptoms, persistent pain, possible need for further surgery and the risks associated with regional blocks and anesthesia. The plan is to take the patient to the operating room sometime this summer for the following procedures: 1. Left middle finger repeat trigger release, and possible tenotomy of flexor digitorum superficialis tendon 2. [ ] All of the preoperative paperwork including the consent was filled out today. All the patient's questions were answered. The patient understands that they will be contacted by our cashier or checker stock clerk soon to schedule this procedure Coding Level of Care Code Est Pt Level 4 (54324) Diagnoses Trigger finger, left middle finger M65.332
--- OUTSIDE RECORDS SUMMARY | 2024-10-14 14:35 | XMS_ITS | Clinical Summary ---
Author Organization Patient Business Ser [facility] Address [address] [place] [address] Care Team Providers Care Media Marketing Specialist Name Role Phone Michael Stephens MD Primary Care Provider [phone] Allergies No known active allergies Medications albuterol [...] History Surgery Date Site/Laterality Comments APPENDECTOMY PROCEDURE: [place] APPENDEC INDICATED PURPOSE OTH MAJOR PX NOT [...] Td or Tdap) 07/26/2024 07/26/2014 Influenza Vaccine (#1) 2024 0, 04/13/2019 Cholesterol Screening (Lipid Panel) 05/04/2025 05/04/2020 [...] 5 Years) and At-Risk Patients (6 to 49 Years) Aged Out No longer eligible b [...] Maintenance Insurance [place] Care Teams Media Marketing Specialist Relationship Specialty Start Date End Date Michael Stephens MD [address] [place] [phone] PCP - General Internal Medicine 07/14/14
== END 2024-10-14 15:20 | disposition home or self-care (01) ==
LOC: HO.HOS 14:33
PROVIDERS: PCP Internal Medicine; Visit Provider Orthopaedic Surgery
DX: M65.332 Trigger finger, left middle finger (principal)
CPT/HCPCS: 99024

== ENCOUNTER → 2024-10-14 14:33 | Outpatient (BNVA) | payer OTHER, SELFPAY | PROVIDERS: PCP Internal Medicine; Visit Provider Orthopaedic Surgery | DX: M65.332 Trigger finger, left middle finger (principal) | CPT/HCPCS: 99212 ==

== ENCOUNTER 2024-11-17 07:36 | Day surgery (SDC) | payer OTHER, SELFPAY ==
--- OUTSIDE RECORDS SUMMARY | 2024-10-26 13:34 | XMS_ITS | Clinical Summary ---
Author Organization Patient Business Ser [facility] Address [address] [place] [address] Care Team Providers Care Sql Ssis Developer Name Role Phone Michael Stephens MD Primary [...] History Surgery Date Site/Laterality Comments APPENDECTOMY PROCEDURE: [place] APPENDEC INDICATED PURPOSE OTH MAJOR PX NOT [...] Vaccine (2023-2 5 season) 2023 Depression Screening 04/06/2024 HIV Screening 05/25/2024 Hepatitis C Screening 05/25/2024 [...] Maintenance Insurance [place] - [place] Care Teams Sql Ssis Developer Relationship Specialty Start Date End Date Michael Stephens MD [address] [place] [phone] PCP - General Internal Medicine 07/14/14
--- OUTSIDE RECORDS SUMMARY | 2024-10-26 13:34 | XMS_ITS ---
Author Name [facility] Organization Unknown Care Team Organization Name Specialty Phone Email Start Date End Da te [facility] Michael Stephens Primary Care 02/11/2022 11/23/19 24
[2024-11-15 12:46] VITALS: BMI 31.7
--- NOTE | 2024-11-16 09:58 | P.CONAN_ITS ---
Documented by User: Charisse Lee NP 11/16/24 09:58 HPI - Anesthesia Eval Consult details Narrative: 34yo M for Left REPEAT Middle FingerTrigger Release,and possible [facility] Tenotomy PMFSH Active Problems Active Problems: All Active Problems Trigger finger, left middle finger (Acute) Past Medical History Medical History Asthma Surgical History Surgical History Hx of hand surgery Hx of appendectomy H/O vasectomy History of ear surgery Social History Social History Are you a primary medicare insurance specialist to a significant other at home: No Do you presently have visiting nurse or other home services: No Comment: counts correct Patient Tobacco Use Status: Never used Tobacco Use of substances other than those prescribed or required for medical reasons: No Have you been hit, kicked, punched, or otherwise hurt by someone within the past year? 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 Meds Allergies Allergy/AdvReac Type Severity Reaction Status Date / Time No Known Allergies Allergy Verified 11/17/24 07:53 Home Medications ?Medication ?Instructions ?Recorded ?Confirmed ?Last Taken ?Type albuterol sulfate 90 mcg/actuation 2 puff inhalation Q 4H PRN wheezing 06/20/24 11/15/24 Unknown History aerosol inhaler Exam Height,Weight and Vital Signs: Height 5 ft 5 in Weight 86.464 kg Assessment and Plan Assessment Anesthesia Assessment: Chart Reviewed Documented by User: Flower Da Silva MD 11/17/24 10:41 PMFSH Past Medical History Medical History Asthma Family History Family history of problems with anesthesia: No Surgical History Surgical History Hx of hand surgery Hx of appendectomy H/O vasectomy History of ear surgery History of Problems with Anesthesia: No Social History Social History Are you a primary medicare insurance specialist to a significant other at home: No Do you presently have visiting nurse or other home services: No Comment: counts correct Patient Tobacco Use Status: Never used Tobacco Use of substances other than those prescribed or required for medical reasons: No Have you been hit, kicked, punched, or otherwise hurt by someone within the past year? 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 Allergies Allergy/AdvReac Type Severity Reaction Status Date / Time No Known Allergies Allergy Verified 11/17/24 07:53 Home Medications ?Medication ?Instructions ?Recorded ?Confirmed ?Last Taken ?Type albuterol sulfate 90 mcg/actuation 2 puff inhalation Q 4H PRN wheezing 06/20/24 11/15/24 Unknown History aerosol inhaler Exam Airway Mallampati Class: II TM Dist: >3cm Neck ROM: Full Heart: rrr Lungs: cta Assessment and Plan Assessment Anesthesia Assessment: Anesthesia Plan Discussed Final Anesthetic Review Family History of Problems with Anesthesia: No History of Problems with Anesthesia: No NPO: Yes ASA Class: II Final Preanesthetic Review: No Changes in Pt Med Stat, Meds/Allgs Chart Reviewed, Consent Obtained/Reviewed and Anes Risks/Benef Reviewed Patient Risk: Low Procedure Risk: Low Anesthetic Plan Anesthetic Plan: GA and Agree w/ Assess. and Plan Disposition: Standard PACU
[2024-11-17 07:54] VITALS: BP 126/82; PULSE 65; RESP 14; TEMP 36.6; O2SAT 99; BMI 33.0
--- NOTE | 2024-11-17 07:56 | P.OP_ITS ---
Operative Note Operative Note Date of Service: 11/17/24 Narrative: Operative Note Narrative: Preop diagnosis: 1. Right recurrent middle finger trigger finger, status post A1 vicki release Postop diagnosis: Same Procedure: 1. Right middle finger repeat A1 vicki release, and tenotomy of the ulnar slip of the flexor digitorum superficialis tendon Surgeon: Ana Laura Green MD Outer Diameter Grinder Tool: Aiden JACOB Anesthesia: General Anesthesia Findings: No locking or catching with passive range of motion following tenotomy Implants: None Tourniquet time: 29 minutes EBL: 5.0 ml Specimen: None Drains: None Complications: None Disposition: Brought to the recovery room in stable condition Plan: Follow-up in 10-14 days for wound check, suture removal and to check pathology Indications: The patient is a 34 year old man with recurrent locking and catching following a right middle finger A1 vicki release . The risks and benefits of operative treatment, including but not limited to risk of damage to blood vessels, nerves, tendons, infection, recurrence, persistent pain or numbness, incomplete resolution of preoperative symptoms, or need for further surgery were discussed with the patient and they wished to proceed with surgery. Procedure: Once consent was obtained patient was brought back to the operating suite and placed in the operating table in a supine position. . Perioperative antibiotics and anesthesia was administered by the anesthesia team. A tourniquet was applied to the proximal aspect of the right upper extremity and the limb was prepped and draped in a standard surgical fashion. The limb was elevated exsanguinated with Esmarch bandage and the tourniquet inflated to 250 mm of mercury for a total tourniquet time of 29 minutes. A 1.5 cm oblique incision was made centered over the A1 vicki of the right middle finger . The incision was made through the skin to the subcutaneous tissues using a #15 blade. Careful dissection was made down to the level of the A1 vicki using tenotomy scissors, with care being taken to protect the nearby neurovascular structures. A longitudinal incision was made in the A1 vicki 1st using a #15 blade, then using tenotomy scissors under direct visualization. The A1 vicki was noted to be thickened. I made part of a Izzy's incision centered over the flexion crease of the right middle finger PIP joint. The incision was made through the skin to the subcutaneous tissues. I then dissected down to the level of the flexor tendon sheath. I then entered the A3 vicki by making a small longitudinal incision and preserving the A2 and A4 pulleys. I then identified the insertion of the ulnar slip of the FDS tendon and this was released using a 15. Blade and iris scissors. I then used the iris scissors to make a longitudinal incision in the chiasm separate in the ulnar and radial slips of the FDS tendon. This then allowed me to withdraw the ulnar slip of the FDS tendon into the A1 vicki area of the flexor tendon sheath. I then finished our tenotomy by making a beveled incision and detaching and removing the ulnar slip of the FDS tendon. It was then placed on the back table. The patient's middle finger was then brought through passive flexion and extension and no locking or catching was appreciated. At this point the tourniquet was deflated and hemostasis obtained with a brief period of local pressure. The wound was copiously irrigated with normal saline. The skin edges were reapproximated with 5-0 nylon suture. The wound was infiltrated with some 1% lidocaine with epinephrine for postop pain control and a sterile dressing was applied. The patient appears to have tolerated the procedure well and with no complications. All digits were well vascularized conclusion of the case.
[2024-11-17] MEDS: Lactated Ringers 1,000 ML 100 ML IVCONT (08:22)
--- NOTE | 2024-11-17 10:02 | MHC.SHP ---
Pre-Procedural Eval Section A - 24 Hr Update-Section A only Date of Service: 11/17/24 The patient is an INPATIENT: No Changes since office visit: No Cold of Flu in the past 2 weeks, No New Medical Problems, No Changes in Medication and No Patient answered all questions The patient has been examined within 24 hours of the surgical procedure. The History & Physical has been completed within 30 days and I have reviewed it.: Yes Section B - Complete if H&P > 30 days Chief Complaint: Trigger finger, left middle finger Allergies: Allergies Allergy/AdvReac Type Severity Reaction Status Date / Time No Known Allergies Allergy Verified 11/17/24 07:53 Plan I have reviewed the history and physical and performed a pertinent physical examination on my patient. No changes have occurred unless specified. Time Spent With Patient Time: Total time managing care of this patient today ____ minutes.
[2024-11-17 11:40] VITALS: BP 135/76; PULSE 80; RESP 18; TEMP 36.3; O2SAT 96
[2024-11-17 11:45] VITALS: BP 147/84; PULSE 78; RESP 21; O2SAT 95
[2024-11-17 11:50] VITALS: BP 134/82; PULSE 76; RESP 21; O2SAT 95
[2024-11-17 11:55] VITALS: BP 134/86; PULSE 68; RESP 20; O2SAT 96
[2024-11-17 12:10] VITALS: BP 132/88; PULSE 66; RESP 17; TEMP 36.6; O2SAT 96
== END 2024-11-17 12:40 | disposition home or self-care (01) ==
PROVIDERS: PCP Internal Medicine; Visit Provider Orthopaedic Surgery
PROC: (CPT 26055; principal; 2024-11-17 09:30)
DX: M65.332 Trigger finger, left middle finger (principal); Z98.890 Other specified postprocedural states
CPT/HCPCS: 26170; 26055; J0131; J0690; J1100; J2003; J2004; J2405; J2704; J3010

== ENCOUNTER → 2024-11-17 07:36 | Outpatient (BNV) | payer OTHER, SELFPAY | PROVIDERS: PCP Internal Medicine; Visit Provider Orthopaedic Surgery | DX: M65.331 Trigger finger, right middle finger (principal) | CPT/HCPCS: 26055; 26455 ==

== ENCOUNTER 2024-11-30 12:43 | Outpatient (AMB) | payer OTHER, SELFPAY ==
[2024-11-30 13:07] VITALS: BMI 32.9
--- NOTE | 2024-11-30 13:07 | A.OFFVIS_ITS ---
Vital Signs 11/30/24 13:07 Height 5 ft 5 in Weight 198 lb BMI 32.9 Intake Visit Reasons: PO LT HALFWAY tenotomy/MF repeat trigger 11/17/24 AR Intake Note: Adonay is a 34 year old right hand dominant male who presents today for his first post-operative visit status post Repeat Left Middle Trigger Finger Release & Tenotomy of the Ulnar Slip of the Flexor Digitorum Superficialis Tendon, DOS: 11/17/24, by Dr. Green. Patient complains of numbness and swelling on his left middle finger. He is taking Tylenol with minimal relief. Allergies No Known Allergies Allergy (Verified 11/30/24 13:13) HPI HPI PO LT HALFWAY tenotomy/MF repeat trigger 11/17/24 AR: Details: Adonay is a 34 year old right hand dominant male who presents today for his first post-operative visit status post Repeat Left Middle Trigger Finger Release & Tenotomy of the Ulnar Slip of the Flexor Digitorum Superficialis Tendon, DOS: 11/17/24, by Dr. Green. Patient complains of swelling on his left middle finger. He is taking Tylenol with minimal relief. Patient states that he is quite stiff in the left hand particularly in the middle finger, and can not obtain full range of motion at this time. 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 Cap refill was brisk. He can make a fist and extend all of his digits today with encouragement. We did not see any locking and catching today. He does have some mild tenderness over incision sites over the A1 vicki and over the FDS tendon of the left middle finger Patient does report significant discomfort with range of motion, particularly in the dorsal aspect of the left middle finger, consistent with stiffness His surgical incision is well healing with no evidence of infection Assessment & Plan Assessment & Plan (1) Trigger finger, left middle finger: Code(s): M65.332 - Trigger finger, left middle finger Category: Medical Plan 1. Status post partial FDS tenotomy of the left middle finger DOS 11/17/2024 Patient appears to be recovering well postoperatively Patient is educated about the typical recovery course OT referral placed for range of motion of the right hand, as he has gotten very stiff Sutures removed and Steri-Strips applied in the office today without issue, should put light dressing on when out and about for the next week No under water or particularly dirty activities for 1 more week 2 lb weight limit for a further 2 weeks Follow-up in 4 weeks for [id number]-ut-qjcexm check, sooner with any acute concerns Orders: Orders OT Evaluation and Treatment Today M65.332 - Trigger finger, left middle finger Coding Level of Care Code Global (72509) Diagnoses Trigger finger, left middle finger M65.332
--- OUTSIDE RECORDS SUMMARY | 2024-11-30 13:07 | XMS_ITS | Clinical Summary ---
Author Organization Patient Business Ser [facility] Address [address] [place] [address] Care Team Providers Care Management Liaison Name Role Phone Michael Stephens MD Primary Care Provider [phone] Allergies No known active allergies Medications albuterol [...] History Surgery Date Site/Laterality Comments APPENDECTOMY PROCEDURE: [place] APPENDEC INDICATED PURPOSE OTH MAJOR PX NOT [...] Maintenance Insurance [place] Care Teams Management Liaison Relationship Specialty Start Date End Date Michael Stephens MD [address] [place] [phone] PCP - General Internal Medicine 07/14/14
== END 2024-11-30 13:41 | disposition home or self-care (01) ==
LOC: HO.HOS 12:44
PROVIDERS: PCP Internal Medicine
DX: M65.332 Trigger finger, left middle finger (principal)
CPT/HCPCS: 99024

== ENCOUNTER → 2024-11-30 12:43 | Outpatient (BNVA) | payer OTHER, SELFPAY | PROVIDERS: PCP Internal Medicine | DX: M65.332 Trigger finger, left middle finger (principal) | CPT/HCPCS: 99212 ==

== ENCOUNTER 2024-12-27 09:43 | Outpatient (AMB) | payer OTHER, SELFPAY ==
[2024-12-27 09:48] VITALS: BMI 32.9
--- NOTE | 2024-12-27 09:48 | MHC.OFFVIS ---
Vital Signs 12/27/24 09:48 Height 5 ft 5 in Weight 198 lb BMI 32.9 Intake Visit Reasons: PO LT HALF-WAY tenotomy/MF repeat trigger 11/17/24 AR Intake Note: Adonay is a 34 year old right hand dominant male who presents today post-operatively for a ROM check status post Repeat Left Middle Trigger Finger Release & Tenotomy of the Ulnar Slip of the Flexor Digitorum Superficialis Tendon, DOS: 11/17/24, by Dr. Green. At his last visit, he was advised to avoid under water and dirty activities for 1 more week. He was further advised to remain on a 2 lb weight limit for 2 more weeks. Patient reports he continues 2 lb weight restriction and going to Occupational Therapy. He has been taking Tylenol and Ibuprofen PRN, with relief, as he is still having some stiffness. Employer was not able to accommodate restrictions, remains out of work. This is a work-related injury. Allergies No Known Allergies Allergy (Verified 12/27/24 09:48) HPI HPI PO LT HALF-WAY tenotomy/MF repeat trigger 11/17/24 AR: Details: Adonay is a 34 year old right hand dominant male who presents today post-operatively for a ROM check status post Repeat Left Middle Trigger Finger Release & Tenotomy of the Ulnar Slip of the Flexor Digitorum Superficialis Tendon, DOS: 11/17/24, by Dr. Green. At his last visit, he was advised to avoid under water and dirty activities for 1 more week. He was further advised to remain on a 2 lb weight limit for 2 more weeks. Patient reports he continues 2 lb weight restriction and going to Occupational Therapy. He has been taking Tylenol and Ibuprofen PRN, with relief, as he is still having some stiffness. Employer was not able to accommodate restrictions, remains out of work. This is a work-related injury. 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 Cap refill was brisk. He can make a fist and extend all of his digits today with encouragement. We did not see any locking and catching today. He does have some mild tenderness over incision sites over the A1 vicki and over the FDS tendon of the left middle finger Patient does report mild discomfort with range of motion, particularly in the dorsal aspect of the left middle finger, consistent with stiffness His surgical incision is well healed with no evidence of infection Assessment & Plan Assessment & Plan (1) Trigger finger, left middle finger: Code(s): M65.332 - Trigger finger, left middle finger Category: Medical Plan 1. Status post partial FDS tenotomy of the left middle finger DOS 11/17/2024 Patient appears to be recovering well postoperatively Patient is educated about the typical recovery course Continue OT Patient may return to work with a 10 lb weight limit in the left hand until follow-up Follow-up in 4 weeks for jgjfn-vj-lzfvjl check, sooner with any acute concerns Coding Level of Care Code Global (55588) Diagnoses Trigger finger, left middle finger M65.332
--- OUTSIDE RECORDS SUMMARY | 2024-12-27 11:38 | XMS_ITS | Clinical Summary ---
Author Organization Patient Business Ser [facility] [place] [facility] [place] Address [address] [place] [address] Care Team Providers Care Insurance Marketing Rep Name Role Phone Michael Stephens MD Primary [...] History Surgery Date Site/Laterality Comments APPENDECTOMY PROCEDURE: AR APPENDEC INDICATED PURPOSE OTH MAJOR PX NOT [...] of 3 - 19+ 3-dose series) 11/17/2007 Depression Screening 04/06/2024 HIV Screening 05/25/2024 Hepatitis C Screening 05/25/2024 Social Influencers of Health Screening 05/25/2024 DTaP,Tdap,and Td Vaccines (2 - Td or Tdap) 07/26/2024 07/26/2014 COVID-19 Vaccine (1 - 2023-2 5 season) 2024 Influenza Vaccine (#1) 2024 0, 04/13/2019 Cholesterol [...] Maintenance Insurance [place]ICA[place] - [place] Care Teams Insurance Marketing Rep Relationship Specialty Start Date End Date Michael Stephens MD [address] [place] [id number] PCP - General Internal Medicine 12/06/24
== END 2024-12-27 10:00 | disposition home or self-care (01) ==
LOC: HO.HOS 09:44
PROVIDERS: PCP Internal Medicine
DX: M65.332 Trigger finger, left middle finger (principal)
CPT/HCPCS: 99024

== ENCOUNTER → 2024-12-27 09:43 | Outpatient (BNVA) | payer OTHER, SELFPAY | PROVIDERS: PCP Internal Medicine | DX: M65.332 Trigger finger, left middle finger (principal) | CPT/HCPCS: 99212 ==

== ENCOUNTER 2025-02-10 08:48 | Outpatient (AMB) | payer OTHER, SELFPAY ==
--- NOTE | 2025-02-10 09:00 | A.OFFVIS_ITS ---
Vital Signs 02/10/25 09:01 Height 5 ft 5 in Weight 198 lb BMI 32.9 Intake Visit Reasons: PO LT PENITENTIARY tenotomy/MF repeat trigger 11/17/24 AR Intake Note: Adonay is a 34 year old right hand dominant male who presents today post- operatively for a ROM Check status post Repeat Left Middle Trigger Finger Release & Tenotomy of the Ulnar Slip of the Flexor Digitorum Superficialis Tendon, DOS: 11/17/24, by Dr. Green. At his last visit, he was advised to continue with Occupational Therapy. He was also released to return to work with a 10 lb weight limit until follow-up. Patient reports that he has not yet started OT - he will be starting on 02/14/25. He is able to make a fist and extend, but feels some pulling while doing so. Complaints of numbness and tingling of the Left Hand. His job is unable to accomodate light duty so he is out of work Allergies No Known Allergies Allergy (Verified 12/27/24 09:48) HPI HPI PO LT PENITENTIARY tenotomy/MF repeat trigger 11/17/24 AR: Details: Adonay is a 34 year old right hand dominant male who presents today post- operatively for a ROM Check status post Repeat Left Middle Trigger Finger Release & Tenotomy of the Ulnar Slip of the Flexor Digitorum Superficialis Tendon, DOS: 11/17/24, by Dr. Green. At his last visit, he was advised to continue with Occupational Therapy. He was also released to return to work with a 10 lb weight limit until follow-up. Patient reports that he has not yet started OT - he will be starting on 02/14/25. He is able to make a fist and extend, but feels some pulling while doing so. Complaints of numbness and tingling of the Left Hand. Patient reports that he has had any EMG done and is being treated for carpal tunnel syndrome at a different office His job is unable to accomodate light duty so he is out of work [facility] Medical History Asthma Surgical History Hx of hand surgery Hx of appendectomy H/O vasectomy History of ear surgery Social History Are you a primary career services coordinator to a significant other at home: No Do you presently have visiting nurse or other home services: No Patient Tobacco Use Status: Never used Tobacco Current occupation: [employer]/ [employer]/ rt hand Review of Systems Const All systems reviewed & are unremarkable except as noted in HPI and below Physical Exam Vital Signs: BMI result Body Mass Index 32.9 Extrem Other: The patient was alert oriented and in no acute distress Sensation intact to the tips of all digits. Cap refill was brisk. He can make a fist and extend all of his digits today . We did not see any locking and catching today. He does have minimal tenderness over incision sites over the A1 vicki and over the FDS tendon of the left middle finger Patient does report mild discomfort with range of motion, particularly in the dorsal aspect of the left middle finger, consistent with stiffness, although this has improved His surgical incision is well healed with no evidence of infection Assessment & Plan Assessment & Plan (1) Trigger finger, left middle finger: Code(s): M65.332 - Trigger finger, left middle finger Category: Medical Plan 1. Status post partial FDS tenotomy of the left middle finger DOS 11/17/2024 Patient appears to be recovering well postoperatively Patient is educated about the typical recovery course Continue OT No active work restrictions from our perspective, however the patient is being held out of work by the clinic that is handling his carpal tunnel syndrome Patient understands this in his amenable to this plan Follow-up as needed Coding Level of Care Code Global (99810) Diagnoses Trigger finger, left middle finger M65.332
[2025-02-10 09:01] VITALS: BMI 32.9
== END 2025-02-10 09:25 | disposition home or self-care (01) ==
LOC: HO.HOS 08:48
PROVIDERS: PCP Internal Medicine
DX: M65.332 Trigger finger, left middle finger (principal)
CPT/HCPCS: 99024

== ENCOUNTER → 2025-02-10 08:48 | Outpatient (BNVA) | payer OTHER, SELFPAY | PROVIDERS: PCP Internal Medicine | DX: Z47.89 Encounter for other orthopedic aftercare (principal); M65.332 Trigger finger, left middle finger | CPT/HCPCS: 99212 ==

== ENCOUNTER 2025-02-14 09:27 | Outpatient (RCR) | payer OTHER, SELFPAY ==
--- NOTE | 2025-02-15 12:37 | MHC.OT.DC ---
[facility] Office [address] [phone] F: [phone] F: [phone] Occupational Therapy Discharge Note Patient Name: Adonay Borrero Provider: Aiden Mejía Diagnosis: s/p L middle finger FDS tenotomy Date of Surgery: 11/17/24 Date of Evaluation: 12/08/24 Date of Discharge: 02/14/25 Treatments to Date: 14 Discharge Status: Improved Function Independent with HEP Discharge Summary: Adonay has made excellent progress following trigger finger release surgery and has achieved functional recovery for this diagnosis. Patient demonstrates full composite fist with no triggering or locking. Pain has resolved at rest with occasional discomfort noted during repetitive grasp activities. Objective improvements as follows: Right gross grasp improved to 45# (from 30, though right hand baseline is 115#), Quick DASH score improved from 72% to 18.2%, indicating significant functional improvement. He is independent with HEP including strengthening and flexibility exercises. Adonay's progress in final treatment sessions was limited by symptoms consistent with carpal tunnel syndrome (separate diagnosis), including intermittent numbness in median nerve distribution and reduced carrier driver strength. General exercises and median nerve glides were provided for symptom management. Per pt report, he was evaluated by [facility] for management of CTS per recommendation of workers comp. At this time, pt is discharged from OT s/p trigger finger release and in agreement with plan. Thank you for this referral. Electronically Signed By: Stephanie Coburn MS OTR/L Reviewed/agree with student documentation: Therapist: Please Sign and return to therapist, thank you for your referral.
== END 2025-02-15 12:38 | disposition home or self-care (01) ==
LOC: HO.OTS 09:27
DX: M65.332 Trigger finger, left middle finger (principal)
CPT/HCPCS: 97035; 97110; 97140; 97165